=== PATIENT | male | born 1980 | race African-American/Black ===

== ENCOUNTER 2023-07-09 15:31 | Emergency (ER) | payer OTHER ==
[2023-07-09] MEDS ORDERED: diphenhydrAMINE 50 MG/ML VIAL ONE (15:56)
[2023-07-09] MEDS ORDERED: Metoclopramide HCl 10 MG (2 mL) VIAL ONE (15:57)
[2023-07-09 16:03] LABS: #Basophils 0.03 10x3/uL (0.0-0.2); %Basophils 0.5 % (0.0-1.0); %Eosinophils 2.9 % (0.0-10.0); %Lymphocytes 50.1 % (21.0-51.0); %Monocytes 9.4 % (0.0-10.0); %Neutrophils 36.9 % (42.0-75.0); Hematocrit 38.6 % (42.0-52.0); Hemoglobin 12.6 g/dL (14.0-18.0); Mean Corpuscular HGB CONC 32.6 g/dL (32.0-36.0); Mean Corpuscular Hemoglobin 30.2 pg (27.0-31.0); Mean Corpuscular Volume 92.6 fL (78.0-98.0); Mean Platelet Volume 9.8 fL (7.4-10.4); Platelet Count 195 10x3/uL (130-400); RBC Distribution Width 13.2 % (11.5-14.5); Red Blood Cell (RBC) Count 4.17 mill/uL (4.70-6.10)
[2023-07-09 16:21] LABS: ALT (SGPT) 15 U/L (8-55); AST (SGOT) 20 U/L (5-34); Albumin 3.8 g/dL (3.5-5.0); Alkaline Phosphatase 46 U/L (40-110); Anion Gap 11 mmol/L (10-20); BUN (Urea Nitrogen) 11 mg/dL (8.9-20.6); Bilirubin, Total 0.6 mg/dL (0.2-1.2); Calc. Creatinine Clearance 0 mL/min (70-130); Calcium 9.5 mg/dL (7.8-10.44); Carbon Dioxide 25 mmol/L (22-29); Chloride 109 mmol/L (98-107); Estimated GFR 114; Globulin 3.4 g/dL (2.4-3.5); Glucose 86 mg/dL (70-105); Lipase 16 U/L (8-78); Potassium 4.3 mmol/L (3.5-5.1); Protein, Total 7.2 g/dL (6.0-8.3); Sodium 141 mmol/L (136-145)
[2023-07-09 16:25] LABS: Troponin I Less than 0.010 ng/mL (< 0.028)
== END 2023-07-09 18:50 | disposition still patient (30) ==
LOC: EEVIPCON 15:31 → ERS 15:31
DX: R51.9 Headache, unspecified (principal)
CPT/HCPCS: 70450; 71045; 80053; 83690; 84484; 85025; 93005; 96365; 96366; 96375; J1200; J2765